=== PATIENT | male | born 1945 | race Caucasian/White ===

== ENCOUNTER 2017-01-06 05:23 | Day surgery (SDC) | payer MEDICARE ==
[2016-12-21 10:40] VITALS: BMI 22.0
--- NOTE | 2016-12-21 11:42 | PAT Medication Instructions ---
Service Date Dec 21, 2016. Current Home Medication List Amiodarone Hcl (Cordarone), 1 TAB PO QAM Bumetanide (Bumex), 1 MG PO QAM Citalopram Hydrobromide (Citalopram Hydrobromide), 1 TAB PO QAM Ergocalciferol (Vitamin D 72643 Unit), 50,000 UNIT PO MONTHLY Famotidine (Pepcid), 20 MG PO Q2D Finasteride (Proscar), 5 MG PO QPM Levetiracetam (Keppra), 250 MG PO BID Multivitamin (Multivitamin), 1 TAB PO QAM Sennosides-Docusate Sodium (Stool Softener), 1 TAB PO DAILY PRN for Constipation Vitamin B Cmplx/Vitc/Folic Ac (Nephrocaps), 1 CAP PO QPM Warfarin Sod (Jantoven), 2 MG PO 4XWK Warfarin Sod (Jantoven), 3 MG PO 3XWK Medication Instructions For Your Scheduled Surgery - Continue per surgeon's instructions: Warfarin Sod (Jantoven), 2 MG PO 4XWK Warfarin Sod (Jantoven), 3 MG PO 3XWK - Hold the following medications the morning of surgery: Bumetanide (Bumex), 1 MG PO QAM Multivitamin (Multivitamin), 1 TAB PO QAM Sennosides-Docusate Sodium (Stool Softener), 1 TAB PO DAILY PRN for Constipation - Take the following medications the morning of surgery with a sip of water OTHERWISE NOTHING TO EAT OR DRINK AFTER MIDNIGHT: Amiodarone Hcl (Cordarone), 1 TAB PO QAM Citalopram Hydrobromide (Citalopram Hydrobromide), 1 TAB PO QAM Famotidine (Pepcid), 20 MG PO Q2D Levetiracetam (Keppra), 250 MG PO BID - Take the following medications as scheduled the night before surgery: Finasteride (Proscar), 5 MG PO QPM Levetiracetam (Keppra), 250 MG PO BID Vitamin B Cmplx/Vitc/Folic Ac (Nephrocaps), 1 CAP PO QPM If you have any questions please call us at [phone] or [phone] or [phone]
--- NOTE | 2016-12-21 12:05 | DIAGNOSTIC IMAGING REPORT ---
CHEST PREADMISSION(PA/LAT) CLINICAL HISTORY: Preoperative chest COMPARISON STUDY: 03/05/2016 FINDINGS: There are postsurgical changes of a midline sternotomy and aortic valve replacement. The heart is normal in size. There is a double-lumen right internal jugular central venous catheter. There is no failure. There is no focal pulmonary consolidation. There are no pleural effusions. Postsurgical changes are present within the lumbar spine.[ IMPRESSION: No active disease in the chest. Electronically signed by: Joshua Wolff M.D. 12/21/2016 12:04 PM Dictated Date/Time: 12/21/2016 12:03 PM
[2016-12-21 12:20] LABS: BASO % 0.5 %; BASO ABS # 0.04 K/uL (0-0.2); COMPLETE YES; EOS % 2.1 %; HEMATOCRIT 33.6 % (42-52); IG% 0.9 %; LYMPH % 17.2 %; LYMPH ABS # 1.48 K/uL (1.2-3.4); MEAN CELL VOLUME 91.3 fL (80-100); MEAN CORPUSCULAR HEMOGLOBIN 29.9 pg (25-34); MEAN CORPUSCULAR HGB CONC 32.7 g/dl (32-36); MEAN PLATELET VOLUME 8.8 fL (7.4-10.4); MONO % 9.7 %; NEUT % 69.6 %; PLATELET COUNT 381 K/uL (130-400); RED BLOOD COUNT 3.68 M/uL (4.7-6.1); WHITE BLOOD COUNT 8.58 K/uL (4.8-10.8)
[2016-12-21 12:30] LABS: INR 1.5 (0.9-1.1); PARTIAL THROMBOPLASTIN RATIO 1.4; PROTHROMBIN TIME (PATIENT) 16.7 SECONDS (9.0-12.0)
[2016-12-21 17:04] LABS: BUN/CREATININE RATIO 6.4 (10-20); CALCIUM 9.1 mg/dl (8.5-10.1); CREATININE 5.4 mg/dl (0.60-1.40); POTASSIUM 4.4 mmol/L (3.5-5.1)
[~2017-01-06] VITALS: Ht 180.3 cm; Wt 71.9 kg
[~2017-01-06 05:23] MED LIST: AMIO200T4 PO; B-CO1CAP17 PO; BUME1TAB PO; CITA20TA4 PO; ERGO500037 PO; FAMO20TA11 PO; FINA5TAB PO; LEVE250T PO; MULT-506 PO; SENNTAB23 PO; WARF2TAB8 PO; WARF3TAB6 PO
[2017-01-06 05:49] VITALS: BP 125/65; PULSE 78; TEMP 36.7; O2SAT 100; Ht 180.3 cm; Wt 71.9 kg
[2017-01-06] MEDS ORDERED: SODIUM CHLORIDE 0.9% 1000ML 1,000 ML IV SCH (06:00)
[2017-01-06] MEDS ORDERED: CLINDAMYCIN 600 MG/54 ML D5W IV SCH (06:00)
[2017-01-06] MEDS ORDERED: NSS 1000ML IV SCH (06:00)
[2017-01-06 06:33] LABS: INR 1.8 (0.9-1.1); PARTIAL THROMBOPLASTIN RATIO 1.6; PROTHROMBIN TIME (PATIENT) 20.2 SECONDS (9.0-12.0)
[2017-01-06 06:42] LABS: BUN/CREATININE RATIO 7.6 (10-20); CREATININE 3.4 mg/dl (0.60-1.40); POTASSIUM 4.5 mmol/L (3.5-5.1)
[2017-01-06] MEDS ORDERED: MIDAZOLAM HCL 1 MG/ML 2ML VIAL ONE (07:00)
[2017-01-06] MEDS ORDERED: FENTANYL CITRATE INJ 50 MCG/1 ML 2 ML VIAL ONE (07:02)
[2017-01-06] MEDS ORDERED: GELATIN SPONGE 12-7MM ONE (07:09)
[2017-01-06] MEDS ORDERED: THROMBIN FOR SOLN 20000 UNIT KIT ONE (07:09)
[2017-01-06] MEDS ORDERED: BUPIVACAINE/EPINEPHRINE 0.5% MPF 1:200,000 10 ML VIAL ONE (07:09)
[2017-01-06] MEDS ORDERED: LIDOCAINE HCL 1% 20 ML VIAL ONE (07:10)
[2017-01-06] MEDS ORDERED: HEPARIN SOD (PORCINE) 1000 UNIT/ML 10 ML VIAL ONE (07:10)
--- NOTE | 2017-01-06 07:14 | History and Physical ---
History & Physical Date of Service Jan 06, 2017. History & Physical CC: End stage renal disease HPI: Mr. Hendrix is a 71-year-old gentleman who underwent an aortic root replacement. He developed acute renal failure postoperatively, requiring dialysis, and now has a PermCath in place. He is here for evaluation for a permanent fistula. HIS ALLERGIES ARE PENICILLIN. Medications include amiodarone, Bumex, citalopram, Keppra, MiraLAX, Pepcid, Procrit, Renal Caps, and Coumadin. Past medical history is positive for coronary artery occlusive disease, aortic dissection, and renal failure. He also has a history of high blood pressure. Family history is positive for heart disease, hypertension, diabetes, cancer, circulation problems, carotid artery disease. SOCIAL HISTORY: He does not smoke. He does not drink. REVIEW OF SYSTEMS: Ten systems were reviewed. The only positive findings were irregular heartbeat, loss of appetite, and prostate problems. PHYSICAL EXAM: The patient is awake, alert, oriented x3. He is right handed. Blood pressure is 150/76 in the right, 154/70 in the left. Head and Neck: Within normal limits. No carotid bruits. Lungs are clear. Cardiac exam shows a regular heartbeat. Abdomen was soft. Vascular exam had carotids, superficial temporal and radials +2 bilaterally. Femorals are +2 bilaterally. Neurologic exam shows weakness of the right upper extremity and left lower extremity. IMPRESSION: End-stage renal disease. PLAN AND RECOMMENDATIONS: We did do mapping which showed a usable cephalic vein in the left arm. It is only 2.5 cm at the wrist and on exam it appeared to be smaller and not very usable. He does have a good cephalic vein in the antecubital fossa, in the upper arm on the left side. The right arm has no good conduit for fistula of either basilic or cephalic veins. We went over the risks, complications, and benefits of a left antecubital cephalic vein AV fistula. He understood these risks and agreed to go ahead with this procedure.
[2017-01-06] MEDS ORDERED: EpHEDrine SULFATE INJ 50 MG/ML AMP IV PRN (07:30)
[2017-01-06] MEDS ORDERED: ATROPINE SULFATE 0.1 MG/ML 5ML SYR IV PRN (07:30)
[2017-01-06] MEDS ORDERED: FENTANYL CITRATE INJ 50 MCG/1 ML 2 ML VIAL IV PRN (07:30)
[2017-01-06] MEDS ORDERED: ONDANSETRON INJ 2 MG/ML 2 ML VIAL IV PRN (07:30)
[2017-01-06] MEDS ORDERED: OXYC-57 PO (08:25)
--- NOTE | 2017-01-06 08:25 | [facility] Post Operative Brief Note ---
Immediate Operative Summary Operative Date Jan 06, 2017. Pre-Operative Diagnosis End Stage Renal Disease Post-Operative Diagnosis End Stage Renal Disease Procedure(s) Performed Left Antecubital Cephalic Vein Arteriovenous Fistula Surgeon Dr. Melchor Valerio Customer Management Specialist Surgeon(s) Nancy Staley,PAC Estimated Blood Loss 5ml Findings Good thrill Specimens none per surgeon Dr. Melchor Valerio Anesthesia MAC Complication(s) None Disposition Recovery Room / PACU
--- NOTE | 2017-01-06 08:27 | Discharge Instructions ---
Discharge Instructions Date of Service Jan 06, 2017. Visit Reason for Visit: End Stage Renal Disease Discharge Discharge Diagnosis / Problem: End stage renal disease, creation left antecubital fistula Discharge Goals Goal(s): Therapeutic intervention Activity Recommendations Activity Limitations: per Instructions/Follow-up section Lifting Limitations: no more than 25 pounds Exercise/Sports Limitations: none May Resume Sexual Activity: when tolerated Shower/Bathe: tomorrow Driving or Machine Use: resume 1 day after discharge Anesthesia . Post Anesthesia Instructions: If you have had General Anesthesia or IV Sedation: * Do not drive today. * Resume driving when surgeon permits. * Do not make important decisions or sign legal documents today. * Call surgeon for: 1. Temperature elevations greater than 101 degrees F. 2. Uncontrollable pain. 3. Excessive bleeding. 4. Persistent nausea and vomiting. 5. Medication intolerance (nausea, vomiting or rash). * For nausea and vomiting use only clear liquids such as: tea, soda, bouillon until nausea subsides, then gradually increase diet as tolerated. * If you have any concerns or questions, call your surgeon's office. If physician is unavailable and it is an emergency, call 911 or go to the nearest emergency room. . Instructions / Follow-Up Instructions / Follow-Up Call [phone] to schedule a follow up appointment if one not already scheduled. ACTIVITY RECOMMENDATIONS: See Above SPECIAL CARE INSTRUCTIONS: Call your doctor if: * Temperature above 101 degrees * Pain not relieved by pain medicine ordered * There is increased drainage or redness from any incision * You have any unanswered questions or concerns. Diet Recommendations Recommended Home Diet: resume previous diet Procedures Procedures Performed: Left Antecubital Cephalic Vein Arteriovenous Fistula Pending Studies Studies pending at discharge: no Medical Emergencies . Who to Call and When: Medical Emergencies: If at any time you feel your situation is an emergency, please call 911 immediately. . Non-Emergent Contact Non-Emergency issues call your: Surgeon . . "Provider Documentation" section prepared by Melchor Valerio. .
[2017-01-06 08:45] VITALS: BP 102/62; PULSE 69; TEMP 36.4; O2SAT 99
--- NOTE | 2017-01-06 08:47 | [facility] Operative Report ---
Operative Report Operative Date Jan 06, 2017. Pre-Operative Diagnosis End Stage Renal Disease Post-Operative Diagnosis End Stage Renal Disease Procedure(s) Performed Left Antecubital Cephalic Vein Arteriovenous Fistula Surgeon Dr. Melchor Valerio Various Exceptionalities Teacher Surgeon(s) MALORIE Ambrose Estimated Blood Loss 5ml Findings Good thrill Specimens none per surgeon Dr. Melchor Valerio Anesthesia MAC Complication(s) None Disposition Recovery Room / PACU Indications This is a 71-year-old white male with end-stage renal disease. He is now admitted for creation of an AV fistula. He has a good cephalic vein in his left arm and we therefore recommended a left antecubital cephalic vein fistula creation. He understood the risks options and benefits and agreed to go ahead with this procedure. Description of Procedure Patient was taken to the operating and placed in the supine position. The left arm was then prepped and draped in a sterile manner. Local anesthetic was then administered in the usual fashion. A transverse incision was then made below the antecubital crease. Dissection was carried downward and the cephalic vein was identified. It compressed easily. Next the brachial artery is identified at that level. Again this artery was of good caliber and very soft. The cephalic vein was then ligated distally and divided. At that point the brachial artery was clamped proximally and distally. A longitudinal arteriotomy was then made. The cephalic vein was then beveled. The vein was approximately 4 mm in size. An end-to-side anastomosis was then accomplished between the cephalic vein and the brachial artery using a 7-0 Prolene suture in the usual vascular fashion. Prior to completing the closure back bleeding and fore bleeding was allowed to occur. The final few sutures were then placed and securely tied. Clamps were then removed. A good thrill was felt in the fistula. Adequate hemostasis was seen. The wound was inspected. Again adequate hemostasis was noted of the wound. The wound was then closed in the usual fashion using a running 3-0 Vicryl suture for the subcutaneous layer. A running 4-0 subcuticular suture of 4-0 Vicryl was used for the skin edges. Dermabond was used for a dressing. Patient had good flow to the hand at the end of the procedure and a good thrill in the fistula. Patient left the operating room in satisfactory condition tolerated procedure well. Nancy Oglesby assisted due to lack of resident availability and was necessary for prepping, draping, retraction, wound closure defects, subQ and skin closure and was necessary for the case. I attest to the content of the Intraoperative Record and any orders documented therein. Any exceptions are noted below.
--- NOTE | 2017-01-06 09:04 | Anesthesiology Progress Note ---
Anesthesia Post Op Note Date & Time Jan 06, 2017 at 09:04 Vital Signs Pain Intensity: 0 Vital Signs Past 12 Hours Date Time Temp Pulse Resp B/P (MAP) Pulse Ox O2 Delivery O2 Flow Rate FiO2 01/06/17 08:45 36.4 69 18 102/62 99 Room Air 01/06/17 05:49 36.7 78 18 125/65 (85) 100 Room Air Notes Mental Status: alert / awake / arousable, participated in evaluation Pt Amnestic to Procedure: Yes Nausea / Vomiting: adequately controlled Pain: adequately controlled Airway Patency, RR, SpO2: stable & adequate BP & HR: stable & adequate Hydration State: stable & adequate Anesthetic Complications: no major complications apparent
[2017-01-06] MEDS ORDERED: PROPOFOL IV EMULSION 10 MG/ML 20 ML VIAL IV ONE (09:07)
[2017-01-06 09:15] VITALS: BP 111/57; PULSE 72; O2SAT 98
--- NOTE | 2017-01-06 13:32 | Progress Note ---
Progress Note Date of Service Jan 06, 2017. Progress Note I assisted Dr Valerio with Charlie Hendrix's Left Antecubital Cephalic Vein Arteriovenous Fistula on 01/06/17, d/t lack of resident availability.
== END 2017-01-06 09:53 | disposition home or self-care (01) ==
LOC: C.ACU 05:23
PROVIDERS: ATTEND Surgery Vascular Surgery
DX: N18.6 End stage renal disease (principal); Z95.2 Presence of prosthetic heart valve; I25.10 Atherosclerotic heart disease of native coronary artery without angina pectoris; Z82.49 Family history of ischemic heart disease and other diseases of the circulatory system; Z83.3 Family history of diabetes mellitus

== ENCOUNTER 2017-04-23 10:27 | Day surgery (SDC) | payer MEDICARE ==
[2017-04-09 13:01] VITALS: BMI 22.0
[~2017-04-23] VITALS: Ht 180.3 cm; Wt 72.6 kg
--- NOTE | 2017-04-23 07:12 | History and Physical ---
History & Physical Date of Service Apr 23, 2017. History & Physical CC: End stage renal disease, malfunctioning left arm fistula HPI: Mr. Hendrix is a 71-year-old gentleman who underwent an aortic root replacement. He developed acute renal failure postoperatively, requiring dialysis, and now has left arm fistula in place. There are problems with running the fistula. Fistulogram showed an occluded cephalic vein in the mid upper arm. HIS ALLERGIES ARE PENICILLIN. Medications include amiodarone, Bumex, citalopram, Keppra, MiraLAX, Pepcid, Procrit, Renal Caps, and Coumadin. Past medical history is positive for coronary artery occlusive disease, aortic dissection, and renal failure. He also has a history of high blood pressure. Family history is positive for heart disease, hypertension, diabetes, cancer, circulation problems, carotid artery disease. SOCIAL HISTORY: He does not smoke. He does not drink. REVIEW OF SYSTEMS: Ten systems were reviewed. The only positive findings were irregular heartbeat, loss of appetite, and prostate problems. PHYSICAL EXAM: The patient is awake, alert, oriented x3. He is right handed. Blood pressure is 150/76 in the right, 154/70 in the left. Head and Neck: Within normal limits. No carotid bruits. Lungs are clear. Cardiac exam shows a regular heartbeat. Abdomen was soft. Vascular exam had carotids, superficial temporal and radials +2 bilaterally. Femorals are +2 bilaterally. Neurologic exam shows weakness of the right upper extremity and left lower extremity. IMPRESSION: End-stage renal disease. Malfunctioning av fistula PLAN AND RECOMMENDATIONS: Patient is admitted for a revision of his fistula. I have discussed the risks options and benefits of the procedure with the patient. The patient understands the risks options and benefits and agrees to the procedure.
[~2017-04-23 10:27] MED LIST changes: -AMIO200T4 PO; -CITA20TA4 PO; +CLINDAMYCIN 600 MG/54 ML D5W IV SCH; +CMD3 PO; +NIFE60TA57 PO; +PARO1TAB27 PO; +SODIUM CHLORIDE 0.9% 1000ML 1,000 ML IV SCH; -WARF2TAB8 PO; -WARF3TAB6 PO; +WARF4TAB8 PO
[2017-04-23 11:15] VITALS: BP 132/72; PULSE 75; TEMP 36.9; O2SAT 93; Ht 180.3 cm; Wt 72.6 kg
--- NOTE | 2017-04-23 11:33 | History & Physical Bridge Note ---
H&P Re-Evaluation Bridge Note: I have examined the patient, reviewed the History & Physical and in the interval since the performance of the History & Physical I have noted the following changes of clinical significance: No changes noted
[2017-04-23 12:31] LABS: PARTIAL THROMBOPLASTIN RATIO 1.1; PROTHROMBIN TIME (PATIENT) 11.1 SECONDS (9.0-12.0)
[2017-04-23 12:48] LABS: BUN/CREATININE RATIO 5.9 (10-20); CALCIUM 9.3 mg/dl (8.5-10.1); CREATININE 4.89 mg/dl (0.60-1.40)
[2017-04-23] MEDS ORDERED: ONDANSETRON INJ 2 MG/ML 2 ML VIAL IV PRN (13:15)
[2017-04-23] MEDS ORDERED: LABETALOL HCL IV 5 MG/ML 20ML IV PRN (13:15)
[2017-04-23] MEDS ORDERED: EpHEDrine SULFATE INJ 50 MG/ML AMP IV PRN (13:15)
[2017-04-23] MEDS ORDERED: HYDROmorphone INJ 1 MG/ML SYR IV PRN (13:15)
[2017-04-23] MEDS ORDERED: FENTANYL CITRATE INJ 50 MCG/1 ML 2 ML VIAL IV PRN (13:15)
[2017-04-23] MEDS ORDERED: ATROPINE SULFATE 0.1 MG/ML 5ML SYR IV PRN (13:15)
[2017-04-23] MEDS ORDERED: MEPERIDINE HCL 25 MG/ML CARP IV PRN (13:15)
[2017-04-23] MEDS ORDERED: LIDOCAINE HCL 2% 2 ML VIAL (20MG/ML) ONE (14:07)
[2017-04-23] MEDS ORDERED: PROPOFOL IV EMULSION 10 MG/ML 20 ML VIAL IV ONE ×2 (14:07→16:12)
[2017-04-23] MEDS ORDERED: MIDAZOLAM HCL 1 MG/ML 2ML VIAL ONE (14:07)
[2017-04-23] MEDS ORDERED: FENTANYL CITRATE INJ 50 MCG/1 ML 2 ML VIAL ONE (14:08)
[2017-04-23] MEDS ORDERED: BUPIVACAINE/EPINEPHRINE 0.5% MPF 1:200,000 30 ML VIAL ONE (14:09)
[2017-04-23] MEDS ORDERED: GELATIN SPONGE 12-7MM ONE (14:09)
[2017-04-23] MEDS ORDERED: THROMBIN FOR SOLN 20000 UNIT KIT ONE (14:09)
[2017-04-23] MEDS ORDERED: LIDOCAINE HCL 1% 20 ML VIAL ONE (14:09)
[2017-04-23] MEDS ORDERED: HEPARIN SOD (PORCINE) 1000 UNIT/ML 10 ML VIAL ONE ×2 (14:10→15:02)
--- NOTE | 2017-04-23 16:21 | [facility] Post Operative Brief Note ---
Immediate Operative Summary Operative Date Apr 23, 2017. Pre-Operative Diagnosis End stage renal disease, malfunctioning left arm fistula Post-Operative Diagnosis End stage renal disease, malfunctioning left arm fistula Procedure(s) Performed Revision Left Upper Arm Arteriovenous Fistula Surgeon Dr. Valerio Yard Coupler Surgeon(s) Nancy Sellers PA-C Estimated Blood Loss 75ml Findings good thrill Specimens NONE per surgeon Anesthesia MAC Complication(s) None Disposition Recovery Room / PACU
--- NOTE | 2017-04-23 16:24 | Discharge Instructions ---
Discharge Instructions Date of Service Apr 23, 2017. Visit Reason for Visit: End Stage Renal Disease Discharge Discharge Diagnosis / Problem: Malfunctioning left arm fistula Discharge Goals Goal(s): Therapeutic intervention Activity Recommendations Activity Limitations: per Instructions/Follow-up section Anesthesia . Post Anesthesia Instructions: If you have had General Anesthesia or IV Sedation: * Do not drive today. * Resume driving when surgeon permits. * Do not make important decisions or sign legal documents today. * Call surgeon for: 1. Temperature elevations greater than 101 degrees F. 2. Uncontrollable pain. 3. Excessive bleeding. 4. Persistent nausea and vomiting. 5. Medication intolerance (nausea, vomiting or rash). * For nausea and vomiting use only clear liquids such as: tea, soda, bouillon until nausea subsides, then gradually increase diet as tolerated. * If you have any concerns or questions, call your surgeon's office. If physician is unavailable and it is an emergency, call 911 or go to the nearest emergency room. . Instructions / Follow-Up Instructions / Follow-Up Call [phone] to schedule a follow up appointment if one not already scheduled. ACTIVITY RECOMMENDATIONS: See Above SPECIAL CARE INSTRUCTIONS: Call your doctor if: * Temperature above 101 degrees * Pain not relieved by pain medicine ordered * There is increased drainage or redness from any incision * You have any unanswered questions or concerns. Diet Recommendations Recommended Home Diet: resume previous diet Procedures Procedures Performed: Revision Left Upper Arm Arteriovenous Fistula Pending Studies Studies pending at discharge: no Medical Emergencies . Who to Call and When: Medical Emergencies: If at any time you feel your situation is an emergency, please call 911 immediately. . Non-Emergent Contact Non-Emergency issues call your: Surgeon . . "Provider Documentation" section prepared by Melchor Valerio. .
[2017-04-23] MEDS ORDERED: OXYCODONE/ACETAMINOPHEN 5-325 TAB PO PRN (16:30)
--- NOTE | 2017-04-23 16:54 | Anesthesiology Progress Note ---
Anesthesia Post Op Note Date & Time Apr 23, 2017 at 16:54 Vital Signs Pain Intensity: 0 Vital Signs Past 12 Hours Date Time Temp Pulse Resp B/P (MAP) Pulse Ox O2 Delivery O2 Flow Rate FiO2 04/23/17 16:50 36.4 67 16 133/73 98 Room Air 04/23/17 16:40 36.4 68 16 127/69 100 Oxymask 5 04/23/17 16:30 36.4 70 16 132/69 100 Oxymask 5 04/23/17 11:15 36.9 75 18 132/72 (92) 93 Room Air Notes Mental Status: alert / awake / arousable, participated in evaluation Pt Amnestic to Procedure: Yes Nausea / Vomiting: adequately controlled Pain: adequately controlled Airway Patency, RR, SpO2: stable & adequate BP & HR: stable & adequate Hydration State: stable & adequate Anesthetic Complications: no major complications apparent
[2017-04-23 17:00] VITALS: BP 126/70; PULSE 80; TEMP 36.4; O2SAT 98
[2017-04-23 17:30] VITALS: BP 125/67; PULSE 70; TEMP 36.4; O2SAT 99
--- NOTE | 2017-04-27 11:27 | Progress Note ---
Progress Note Date of Service Apr 27, 2017. Progress Note I assisted Dr Valerio with Charlie Hendrix's Revision Left Upper Arm Arteriovenous Fistula on 04/23/17, d/t lack of resident availability.
--- NOTE | 2017-05-20 10:19 | OPERATIVE REPORT ---
DATE OF OPERATION: 04/23/2017 PREOPERATIVE DIAGNOSIS: Malfunctioning arteriovenous fistula, left arm. POSTOPERATIVE DIAGNOSIS: Same. PROCEDURE: Revision of left upper arm AV fistula. SURGEON: Melchor Valerio MD. INFORMATION SYSTEMS AUDITOR: Nancy Sellers PA-C. ANESTHETIC: MAC. PROCEDURE INDICATIONS: The patient is a 71-year-old gentleman with a left upper arm fistula. The cephalic vein is occluded in the upper arm. He does have a good cephalic vein in the forearm. We decided to harvest the cephalic vein and do a jump graft from the patent cephalic vein down to the basilic vein in the upper arm. He understood the risks, options and benefits and agreed to have this procedure. DESCRIPTION OF PROCEDURE: The patient was taken to the operating room and placed in supine position. After the left arm was prepped and draped in a sterile manner, local anesthetic was administered. A transverse incision was made over the distal end of the cephalic vein where it was of good caliber and patent. We then made another incision over the basilic vein in the medial aspect of the arm and just distal to the anterior axillary line. The basilic vein at that level was of good caliber and compressed easily. We then made an incision over the cephalic vein from the antecubital crease down to the distal third of the forearm. The cephalic vein was large and widely patent. We ligated all the side branches. We then ligated the cephalic vein proximally and distally and harvested the vein. It was reversed. The cephalic vein was then clamped proximally. It was then divided. The basilic vein was then anastomosed in an end-to-end fashion to the cephalic vein using a 6-0 Prolene suture in the usual vascular fashion. Once this was completed, the cephalic interposition graft was then passed through the tunnel. The basilic artery was then clamped proximally and distally. Longitudinal arteriotomy was then performed. An end-to-side anastomosis was then accomplished using a 6-0 Prolene suture in the usual vascular fashion. Prior to completing the closure, backbleeding and forward bleeding was allowed to occur and final few sutures were then placed and securely tied. Clamps were removed. Excellent flow was seen through the fistula. There was a good palpable thrill. The distal veins dilated up nicely. The wounds were then closed in the usual fashion using running 3-0 Vicryl suture for subcutaneous layer and yoandy for the skin. Sterile dressings were applied to the wound. The patient left the operating room in satisfactory condition and tolerated the procedure well. Nancy Sellers PA-C assisted due to lack of resident availability and was necessary for prepping, draping, retraction and wound closure, defects of subcutaneous tissue and skin closure. I attest to the content of the Intraoperative Record and any orders documented therein. Any exception s are noted below.
== END 2017-04-23 15:48 | disposition home or self-care (01) ==
LOC: C.ACU 10:27
PROVIDERS: ATTEND Surgery Vascular Surgery
DX: T82.868A Thrombosis due to vascular prosthetic devices, implants and grafts, initial encounter (principal); N18.6 End stage renal disease; I12.0 Hypertensive chronic kidney disease with stage 5 chronic kidney disease or end stage renal disease; I48.0 Paroxysmal atrial fibrillation; Y84.8 Other medical procedures as the cause of abnormal reaction of the patient, or of later complication, without mention of misadventure at the time of the procedure; Z88.0 Allergy status to penicillin; Z95.2 Presence of prosthetic heart valve; Z79.899 Other long term (current) drug therapy; Z79.01 Long term (current) use of anticoagulants; Z82.49 Family history of ischemic heart disease and other diseases of the circulatory system; Z83.3 Family history of diabetes mellitus; Z80.9 Family history of malignant neoplasm, unspecified; F41.9 Anxiety disorder, unspecified

== ENCOUNTER → 2017-06-25 | Day surgery (SDC) | payer MEDICARE ==
[2017-06-18 12:48] VITALS: BMI 23.0
[~2017-06-25] VITALS: Ht 180.3 cm; Wt 75.0 kg
[~2017-06-25] MED LIST changes: +ATROPINE SULFATE 0.1 MG/ML 5ML SYR IV PRN; +D5W AND 1/4NSS 1000 ML IV SCH; +EpHEDrine SULFATE INJ 50 MG/ML AMP IV PRN; +FENTANYL CITRATE INJ 50 MCG/1 ML 2 ML VIAL IV PRN; +FENTANYL CITRATE INJ 50 MCG/1 ML 2 ML VIAL ONE; +LACTATED RINGER'S 1000ML 500 ML IV SCH; +LIDOCAINE HCL 1% 20 ML VIAL INJ ONE; +LOVENOX INJ; +LPT40 PO; +MIDAZOLAM HCL 1 MG/ML 2ML VIAL ONE; +ONDANSETRON INJ 2 MG/ML 2 ML VIAL IV PRN; +PHENYLEPHRINE 100MCG/ML 5ML SYR IV PRN; +SEVE800T7 PO
--- NOTE | 2017-06-25 06:05 | History and Physical ---
History & Physical Date of Service Jun 25, 2017. History & Physical CC: End stage renal disease,functioning left arm fistula HPI: Mr. Hendrix is a 71-year-old gentleman who underwent an aortic root replacement. He developed acute renal failure postoperatively, requiring dialysis, and now has left arm fistula in place. There are problems with running the fistula. He had a revision of his fistula and it is now running normally. HIS ALLERGIES ARE PENICILLIN. Medications include amiodarone, Bumex, citalopram, Keppra, MiraLAX, Pepcid, Procrit, Renal Caps, and Coumadin. Past medical history is positive for coronary artery occlusive disease, aortic dissection, and renal failure. He also has a history of high blood pressure. Family history is positive for heart disease, hypertension, diabetes, cancer, circulation problems, carotid artery disease. SOCIAL HISTORY: He does not smoke. He does not drink. REVIEW OF SYSTEMS: Ten systems were reviewed. The only positive findings were irregular heartbeat, loss of appetite, and prostate problems. PHYSICAL EXAM: The patient is awake, alert, oriented x3. He is right handed. Blood pressure is 150/76 in the right, 154/70 in the left. Head and Neck: Within normal limits. No carotid bruits. Lungs are clear. Cardiac exam shows a regular heartbeat. Abdomen was soft. Vascular exam had carotids, superficial temporal and radials +2 bilaterally. Femorals are +2 bilaterally. Neurologic exam shows weakness of the right upper extremity and left lower extremity. Good thrill in left arm fistula IMPRESSION: End-stage renal disease. Functioning av fistula PLAN AND RECOMMENDATIONS: Patient is admitted for removal of his permcath. I have discussed the risks options and benefits of the procedure with the patient. The patient understands the risks options and benefits and agrees to the procedure.
[2017-06-25 08:53] VITALS: BP 121/69; PULSE 84; TEMP 36.9; O2SAT 84; Ht 180.3 cm; Wt 75.0 kg
[2017-06-25 10:41] LABS: PTT PATIENT 26.8 SECONDS (21.0-31.0)
--- NOTE | 2017-06-25 11:06 | [facility] Operative Report ---
Operative Report Operative Date Jun 25, 2017. Pre-Operative Diagnosis functioning fistula Post-Operative Diagnosis same Procedure(s) Performed Removal Of Perm Catheter Surgeon Dr. Valerio General Manager Food Surgeon(s) none Estimated Blood Loss 0 Findings catheter and cuff removed Specimens A. explanted perm catheter Anesthesia MAC Complication(s) None Disposition Indications This is a 71-year-old male who has a functioning fistula. He is here for removal of his PermCath. I have discussed the risks options and benefits of the procedure with the patient. The patient understands the risks options and benefits and agrees to the procedure. Description of Procedure The patient was taken to the angio suite and placed in the supine position. The right side of the neck, chest wall and catheter were prepped and draped in a sterile manner. Local anesthesia was then accomplished. Using sharp and blunt dissection, the cuff of the permcath was freed up from the surrounding fibrous tissue. The permcath and cuff were completely removed. Pressure was then applied and adequate hemostasis was obtained. A sterile dressing was then applied. The patient left the angio suite in good condition and tolerated the procedure well. I attest to the content of the Intraoperative Record and any orders documented therein. Any exceptions are noted below.
--- NOTE | 2017-06-25 11:07 | Discharge Instructions ---
Discharge Instructions Date of Service Jun 25, 2017. Visit Reason for Visit: End Stage Renal Disease Discharge Discharge Diagnosis / Problem: Functioning fistula Discharge Goals Goal(s): Therapeutic intervention Activity Recommendations Activity Limitations: per Instructions/Follow-up section Anesthesia . Post Anesthesia Instructions: If you have had General Anesthesia or IV Sedation: * Do not drive today. * Resume driving when surgeon permits. * Do not make important decisions or sign legal documents today. * Call surgeon for: 1. Temperature elevations greater than 101 degrees F. 2. Uncontrollable pain. 3. Excessive bleeding. 4. Persistent nausea and vomiting. 5. Medication intolerance (nausea, vomiting or rash). * For nausea and vomiting use only clear liquids such as: tea, soda, bouillon until nausea subsides, then gradually increase diet as tolerated. * If you have any concerns or questions, call your surgeon's office. If physician is unavailable and it is an emergency, call 911 or go to the nearest emergency room. . Instructions / Follow-Up Instructions / Follow-Up Call [phone] with any questions or concerns. May shower tonight if dressing dry. Remove prior and replace if needed. SPECIAL CARE INSTRUCTIONS: Medications: * Continue to take your medications as directed. If you have been given a prescription for Plavix, please fill it immediately and take as directed. Incision Care: * Your puncture site may have some bruising and minor swelling for about one week. * You will have a small dressing covering your puncture site. You may remove the dressing after 24 hours and shower. You may let the warm soapy water run over it, but be sure to dry the puncture site well and keep it dry. * DO NOT IMMERSE THE INCISION IN A TUB/POOL/etc. UNTIL HEALED. * Puncture sites should be kept covered with a band-aid until it begins to heal. Restrictions: * Depending on whether you leg or arm was punctured to access the arteries, you will be required to lay flat, hold your arm still, or both, for about 4 hours after the procedure to prevent bleeding. * Limit your activity for the first 48 hours. You may walk and go up and down steps. Avoid excessive bending or movement at the puncture site. Possible Complications: * Excessive Swelling - after blood flow is improved you may notice increased swelling in the lower legs. This is a normal response. This usually depends on the amount of blockages in the leg, how long they have been there prior to your procedure and how much blood flow was restored. Elevating your legs will help to improve this. Please notify our office ([phone] ) if the swelling does not go away after lying in bed overnight. * Infection/Drainage/Bleeding - Drainage or bleeding from the puncture site should be minimal. If you have excessive bleeding or drainage, call our office ([phone]) right away. * Pain - You may experience some mild pain or soreness at your puncture site. If your pain does not improve, please contact our office ([phone]). Call your doctor and seek emergent treatment if you develop: * Temperature above 101 degrees * Any fever or chills * Any redness or purulent drainage from the puncture site * Any new dusky/blue colored toes or feet with coolness or sharp or aching pain. SKIN IRRITATION: * You may experience some redness and/or swelling in the area where radiation was administered. If any skin irritation occurs, please contact your family physician. FOLLOW UP VISIT: Keep any scheduled doctor appointments. Diet Recommendations Recommended Home Diet: resume previous diet Procedures Procedures Performed: Removal Of Perm Catheter Pending Studies Studies pending at discharge: no Medical Emergencies . Who to Call and When: Medical Emergencies: If at any time you feel your situation is an emergency, please call 911 immediately. . Non-Emergent Contact Non-Emergency issues call your: Surgeon . . "Provider Documentation" section prepared by Melchor Valerio. .
[2017-06-25 11:10] VITALS: BP 103/70; PULSE 78; TEMP 36.7; O2SAT 100
[2017-06-25 11:45] VITALS: BP 134/68; PULSE 80; TEMP 36.6; O2SAT 97
--- NOTE | 2017-06-25 11:45 | Anesthesiology Progress Note ---
Anesthesia Post Op Note Date & Time Jun 25, 2017 at 11:45 Vital Signs Pain Intensity: 0 Vital Signs Past 12 Hours Date Time Temp Pulse Resp B/P (MAP) Pulse Ox O2 Delivery O2 Flow Rate FiO2 06/25/17 11:10 36.7 78 16 103/70 100 Room Air 06/25/17 08:53 36.9 84 16 121/69 (86) 84 Room Air Notes Mental Status: alert / awake / arousable, participated in evaluation Pt Amnestic to Procedure: Yes Nausea / Vomiting: adequately controlled Pain: adequately controlled Airway Patency, RR, SpO2: stable & adequate BP & HR: stable & adequate Hydration State: stable & adequate Anesthetic Complications: no major complications apparent
== END | disposition home or self-care (01) ==
LOC: C.ACU 08:01
PROVIDERS: ATTEND Surgery Vascular Surgery
DX: Z45.2 Encounter for adjustment and management of vascular access device (principal); N18.6 End stage renal disease; Z79.01 Long term (current) use of anticoagulants; Z82.49 Family history of ischemic heart disease and other diseases of the circulatory system; Z83.3 Family history of diabetes mellitus

== ENCOUNTER 2017-08-30 07:26 | Day surgery (SDC) | payer MEDICARE ==
[~2017-08-30] VITALS: Ht 180.3 cm; Wt 75.4 kg
--- NOTE | 2017-08-30 05:52 | History and Physical ---
History & Physical Date of Service Aug 30, 2017. History & Physical CC: End stage renal disease, malfunctioning left arm fistula HPI: Mr. Hendrix is a 71-year-old gentleman who underwent an aortic root replacement. He developed acute renal failure postoperatively, requiring dialysis, and now has left arm fistula in place. There are problems with running the fistula. He had a revision of his fistula and it was then running normally. It now has poor flows at dialysis. HIS ALLERGIES ARE PENICILLIN. Medications include amiodarone, Bumex, citalopram, Keppra, MiraLAX, Pepcid, Procrit, Renal Caps, and Coumadin. Past medical history is positive for coronary artery occlusive disease, aortic dissection, and renal failure. He also has a history of high blood pressure. Family history is positive for heart disease, hypertension, diabetes, cancer, circulation problems, carotid artery disease. SOCIAL HISTORY: He does not smoke. He does not drink. REVIEW OF SYSTEMS: Ten systems were reviewed. The only positive findings were irregular heartbeat, loss of appetite, and prostate problems. PHYSICAL EXAM: The patient is awake, alert, oriented x3. He is right handed. Blood pressure is 150/76 in the right, 154/70 in the left. Head and Neck: Within normal limits. No carotid bruits. Lungs are clear. Cardiac exam shows a regular heartbeat. Abdomen was soft. Vascular exam had carotids, superficial temporal and radials +2 bilaterally. Femorals are +2 bilaterally. Neurologic exam shows weakness of the right upper extremity and left lower extremity. Good thrill in left arm fistula IMPRESSION: End-stage renal disease. Malfunctioning av fistula PLAN AND RECOMMENDATIONS: Patient is admitted for a fistulogram and possible intervention. I have discussed the risks options and benefits of the procedure with the patient. The patient understands the risks options and benefits and agrees to the procedure.
[~2017-08-30 07:26] MED LIST changes: -ATROPINE SULFATE 0.1 MG/ML 5ML SYR IV PRN; +DEXTROSE 5% IV SCH; -EpHEDrine SULFATE INJ 50 MG/ML AMP IV PRN; -FENTANYL CITRATE INJ 50 MCG/1 ML 2 ML VIAL IV PRN; -FENTANYL CITRATE INJ 50 MCG/1 ML 2 ML VIAL ONE; -LACTATED RINGER'S 1000ML 500 ML IV SCH; -LIDOCAINE HCL 1% 20 ML VIAL INJ ONE; -MIDAZOLAM HCL 1 MG/ML 2ML VIAL ONE; -ONDANSETRON INJ 2 MG/ML 2 ML VIAL IV PRN; -PHENYLEPHRINE 100MCG/ML 5ML SYR IV PRN; +RANITIDINE IV SCH; -SODIUM CHLORIDE 0.9% 1000ML 1,000 ML IV SCH; -WARF4TAB8 PO
[2017-08-30 07:57] VITALS: BP 114/58; PULSE 55; TEMP 36.6; O2SAT 100; Ht 180.3 cm; Wt 75.4 kg
[2017-08-30 08:20] LABS: PTT PATIENT 26.5 SECONDS (21.0-31.0)
[2017-08-30] MEDS ORDERED: METO25TA56 PO (08:30)
[2017-08-30] MEDS ORDERED: B-CO1CAP17 PO (08:31)
[2017-08-30] MEDS ORDERED: [UNRECOGNIZED DRUG - OTHER] PO (08:31)
[2017-08-30] MEDS ORDERED: SENNTAB23 (08:32)
[2017-08-30] MEDS ORDERED: LEVE250T PO (08:34)
[2017-08-30] MEDS ORDERED: ERGO500037 PO (08:35)
[2017-08-30] MEDS ORDERED: FINA5TAB PO (08:36)
[2017-08-30] MEDS ORDERED: FAMO20TA11 PO (08:36)
[2017-08-30] MEDS ORDERED: BUME1TAB PO (08:37)
[2017-08-30] MEDS ORDERED: prednisone (08:40)
[2017-08-30] MEDS ORDERED: FENTANYL CITRATE INJ 50 MCG/1 ML 2 ML VIAL ONE (09:26)
[2017-08-30] MEDS ORDERED: MIDAZOLAM HCL 1 MG/ML 2ML VIAL ONE (09:27)
--- NOTE | 2017-08-30 09:32 | Pre Sedation Assessment ---
Pre Sedation Assessment General Date of Sedation: Aug 30, 2017. Vital Signs Past 12 Hours Date Time Temp Pulse Resp B/P (MAP) Pulse Ox O2 Delivery O2 Flow Rate FiO2 08/30/17 07:57 36.6 55 18 114/58 (76) 100 Room Air Review Cardiovascular: regular rate, rhythm Lungs: chest non-tender Pre-Sedation Airway Assessment Smoking Status: Never Smoker Hx of Sleep Apnea: No Short Thick Neck: No Oral Cavity: Capped Teeth Mallampati Classification: Class II ASA Classification: Class III NPO Status Date of Last Intake of Fluids: Aug 30, 2017 Time of Last Intake of Fluids: 0600 Date of Last Intake of Solids: Aug 29, 2017 Time of Last Intake of Solids: 1999 Procedure Planning Contraindications for Sedation: None Current Medications Reviewed: Yes Notes The planned sedation has been discussed with the patient. Informed Consent was obtained. I have identified the patient, determined the appropriateness of sedation and have assessed the patient immediately prior to the procedure. All medicine(s) and interventions are by my order.
[2017-08-30] MEDS ORDERED: HYDROCORTISONE SOD SUCCINATE 100 MG/2 ML VIAL IV STA (09:37)
[2017-08-30] MEDS ORDERED: FENTANYL CITRATE INJ 50 MCG/1 ML 2 ML VIAL IV ONE (10:56)
[2017-08-30] MEDS ORDERED: OPTIRAY 300 IV ONE (10:56)
[2017-08-30] MEDS ORDERED: LIDOCAINE HCL 1% 20 ML VIAL INJ ONE (10:56)
[2017-08-30] MEDS ORDERED: MIDAZOLAM HCL 1 MG/ML 2ML VIAL IV ONE (10:56)
--- NOTE | 2017-08-30 11:00 | [facility] Post Operative Brief Note ---
Immediate Operative Summary Operative Date Aug 30, 2017. Pre-Operative Diagnosis Malfunctioning Fistula Post-Operative Diagnosis Malfunctioning Fistula, stenosis peripheral vein and innominate vein Procedure(s) Performed Fistulogram, Percutaneous Transluminal Angioplasty and Stenting Peripheral, Percutaneous Transluminal Angioplasty Centeral. Moderate Sedation from 1019 - [address] Valerio Solution Designer Surgeon(s) None Estimated Blood Loss 15 Findings Consistent with Post-Op Diagnosis Specimens None Drains None Anesthesia Type IV Sedat Cons RN Only Complication(s) none Disposition Accompanied Pt To Recover: no Disposition:
--- NOTE | 2017-08-30 11:03 | Discharge Instructions ---
Discharge Instructions Date of Service Aug 30, 2017. 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 Post Anesthesia Instructions: If you have had General Anesthesia or IV Sedation: * Do not drive today. * Resume driving when surgeon permits. * Do not make important decisions or sign legal documents today. * Call surgeon for: 1. Temperature elevations greater than 101 degrees F. 2. Uncontrollable pain. 3. Excessive bleeding. 4. Persistent nausea and vomiting. 5. Medication intolerance (nausea, vomiting or rash). * For nausea and vomiting use only clear liquids such as: tea, soda, bouillon until nausea subsides, then gradually increase diet as tolerated. * If you have any concerns or questions, call your surgeon's office. If physician is unavailable and it is an emergency, call 911 or go to the nearest emergency room. . Instructions / Follow-Up Instructions / Follow-Up Call [phone] to schedule a follow up appointment if one not already scheduled. SPECIAL CARE INSTRUCTIONS: Medications: * Continue to take your medications as directed. If you have been given a prescription for Plavix, please fill it immediately and take as directed. Incision Care: * Your puncture site may have some bruising and minor swelling for about one week. * You will have a small dressing covering your puncture site. You may remove the dressing after 24 hours and shower. You may let the warm soapy water run over it, but be sure to dry the puncture site well and keep it dry. * DO NOT IMMERSE THE INCISION IN A TUB/POOL/etc. UNTIL HEALED. * Puncture sites should be kept covered with a band-aid until it begins to heal. Restrictions: * Depending on whether you leg or arm was punctured to access the arteries, you will be required to lay flat, hold your arm still, or both, for about 4 hours after the procedure to prevent bleeding. * Limit your activity for the first 48 hours. You may walk and go up and down steps. Avoid excessive bending or movement at the puncture site. Possible Complications: * Excessive Swelling - after blood flow is improved you may notice increased swelling in the lower legs. This is a normal response. This usually depends on the amount of blockages in the leg, how long they have been there prior to your procedure and how much blood flow was restored. Elevating your legs will help to improve this. Please notify our office ([phone] ) if the swelling does not go away after lying in bed overnight. * Infection/Drainage/Bleeding - Drainage or bleeding from the puncture site should be minimal. If you have excessive bleeding or drainage, call our office ([phone]) right away. * Pain - You may experience some mild pain or soreness at your puncture site. If your pain does not improve, please contact our office ([phone]). Call your doctor and seek emergent treatment if you develop: * Temperature above 101 degrees * Any fever or chills * Any redness or purulent drainage from the puncture site * Any new dusky/blue colored toes or feet with coolness or sharp or aching pain. SKIN IRRITATION: * You may experience some redness and/or swelling in the area where radiation was administered. If any skin irritation occurs, please contact your family physician. FOLLOW UP VISIT: Keep any scheduled doctor appointments. Diet Recommendations Recommended Home Diet: resume previous diet Procedures Procedures Performed: Fistulogram, Percutaneous Transluminal Angioplasty and Stenting Peripheral, Percutaneous Transluminal Angioplasty Centeral. Moderate Sedation from 1019 - 1051 Pending Studies Studies pending at discharge: no Medical Emergencies . Who to Call and When: Medical Emergencies: If at any time you feel your situation is an emergency, please call 911 immediately. . Non-Emergent Contact Non-Emergency issues call your: Surgeon . . "Provider Documentation" section prepared by Melchor Valerio. .
--- NOTE | 2017-08-30 11:04 | Post Sedation Assessment ---
Post Sedation Assessment General Date of Sedation Aug 30, 2017. Vital Signs: Vital Signs Past 12 Hours Date Time Temp Pulse Resp B/P (MAP) Pulse Ox O2 Delivery O2 Flow Rate FiO2 08/30/17 11:00 59 20 113/59 99 Room Air 08/30/17 10:55 57 20 112/62 99 Room Air 08/30/17 10:50 58 18 118/63 99 Room Air 08/30/17 10:45 Mask 4 08/30/17 10:40 Mask 4 08/30/17 10:35 Mask 4 08/30/17 10:30 Mask 4 08/30/17 10:25 Mask 4 08/30/17 10:20 Mask 4 08/30/17 10:15 Mask 4 08/30/17 10:10 Room Air 08/30/17 10:04 Room Air 08/30/17 07:57 36.6 55 18 114/58 (76) 100 Room Air Post Procedure Recovery Score Activity: (2) Moves 4 extremities * Respiration: (2) Deep breath/cough Circulation: (2) +/-20% PreAnes Value Consciousness: (2) Fully Awake Oxygen Saturation: (2) > 92% On Room Air Post Anesthesia Score: 10 Discharge Sedation Level of Care: Fast Track Phase II Post Sedation Plan On clinical assessment, the patient appears to have tolerated the sedation without complications. Patient is recovering as anticipated. Patient will continue to be monitored by nursing and may be discharged when sedation discharge criteria are met per below protocol. Upon Completions of procedure and additional 15 minutes continue every 5 minute vital signs and the P.A.R. score; then discharge to a Phase I or Fast Track to Phase II per the following guidelines: * Discharge Patient to appropriate Phase II area if PAR is 8 or greater or return to pre- procedure baseline. The post - procedure orders will be as directed. * If PAR score is less than 8 or not return to pre-procedure baseline then patient will follow Phase I monitoring till PAR is reached for Phase II. The Phase I may be done in procedure room or may call to secure a Phase I area. * If naloxone or flumazenil are used for reversal, hold in Phase I for an additional 60 -120 minutes before discharge to Phase II. Please call the Sedation Physician to re-evaluate and complete post-note for discharge to Phase II area. Do NOT discharge from procedure sedation or Phase 1 until post- sedation evaluation note is complete by procedure /sedation MD Sedation Discharge Instructions to be given to the patient at discharge to home.
[2017-08-30 11:10] VITALS: BP 116/60; PULSE 57; TEMP 36.6; O2SAT 100
--- NOTE | 2017-08-30 11:13 | [facility] Operative Report ---
Operative Report Operative Date Aug 30, 2017. Pre-Operative Diagnosis Malfunctioning Fistula Post-Operative Diagnosis Malfunctioning Fistula, stenosis peripheral vein and innominate vein Procedure(s) Performed Fistulogram, Percutaneous Transluminal Angioplasty and Stenting Peripheral, Percutaneous Transluminal Angioplasty Centeral. Moderate Sedation from 1019 - [address] Valerio Hot Bread Baker Surgeon(s) None Estimated Blood Loss 15 Findings peripheral and central stenosis Specimens None Drains None Anesthesia Type IV Sedat Cons RN Only Complication(s) none Disposition no Indications This is a 71-year-old gentleman with a left upper arm fistula. They are having trouble with dialysis with function of the fistula. Fistulogram with possible intervention was recommended.I have discussed the risks options and benefits of the procedure with the patient. The patient understands the risks options and benefits and agrees to the procedure. Description of Procedure The patient was taken to the angiogram suite and placed in the supine position. The left arm was then prepped and draped in a sterile manner. Local anesthetic was administered and a percutaneous puncture was then made of the proximal portion of the left arm AV fistula using micropuncture technique. Micropuncture wire and sheath were then inserted. A fistulogram was then performed. The fistulogram showed a stenosis of the basilic vein just beyond the anastomosis. It was approximately 4 cm in length. The fistula itself had two aneurysms one proximal at the proximal needle entrance site the other was at the distal site more of a saccular pseudoaneurysm. The central veins showed a short occlusion of the left innominate vein. Large amount of collaterals were seen proximal to this. We then exchanged the micropuncture sheath to a 6 Tajik sheath. An 035 guidewire was used to pass through the first lesion. We used a 6 x 8 balloon to balloon the proximal venous lesion in the arm. Good results were noted. There was some extravasation just beyond the anastomosis on the vein. Therefore we decided to place a Viabahn across this lesion. An 035 glide catheter was inserted. This was passed through the lesion. The wire was exchanged in 018 wire. A 6 x 5 Viabahn was then inserted and deployed over the area where the leak was seen. This was then ballooned with a 6 x 8 balloon again. Excellent flow was seen and no residual stenosis or extravasation was noted. We then exchanged the 018 wire to an 035 glidwire using the glide catheter. The 035 wire was then passed through the innomiate vein. There appeared to be a short occlusion at that level. The innominate vein was then ballooned with a 6 x 6 Childwold balloon. Fairly good results were noted. We then exchanged the sheath to a 7 Tajik sheath and inserted a 10 x 2 lutonix balloon. This was placed across the lesion and ballooned to 11 rafy for 2 minutes. The balloon was then removed. Excellent flow was seen through this area. A good thrill was felt in the fistula. The sheath was then pulled and pressure was applied. Adequate hemostasis was obtained. The patient left the angiogram suite in good condition and tolerated the procedure well. I attest to the content of the Intraoperative Record and any orders documented therein. Any exceptions are noted below.
[2017-08-30 11:40] VITALS: BP 121/64; PULSE 58; TEMP 36.6; O2SAT 98
== END 2017-08-30 11:49 | disposition home health service (06) ==
LOC: C.ACU 07:26
PROVIDERS: ATTEND Surgery Vascular Surgery
DX: T82.858A Stenosis of other vascular prosthetic devices, implants and grafts, initial encounter (principal); Y84.8 Other medical procedures as the cause of abnormal reaction of the patient, or of later complication, without mention of misadventure at the time of the procedure; N18.6 End stage renal disease; Z98.890 Other specified postprocedural states; I25.10 Atherosclerotic heart disease of native coronary artery without angina pectoris; I12.0 Hypertensive chronic kidney disease with stage 5 chronic kidney disease or end stage renal disease; Z79.01 Long term (current) use of anticoagulants; Z79.899 Other long term (current) drug therapy; Z82.49 Family history of ischemic heart disease and other diseases of the circulatory system; Z83.3 Family history of diabetes mellitus; Z80.9 Family history of malignant neoplasm, unspecified

== ENCOUNTER 2017-10-06 10:55 | Day surgery (SDC) | payer MEDICARE ==
[2017-09-30 13:57] VITALS: Ht 180.3 cm; Wt 77.3 kg
[~2017-10-06] VITALS: Ht 180.3 cm; Wt 77.3 kg
--- NOTE | 2017-10-06 06:03 | History and Physical ---
History & Physical Date of Service October 06, 2017. History & Physical CC: End stage renal disease, pseudoaneurysm left arm fistula HPI: Mr. Hendrix is a 71-year-old gentleman who underwent an aortic root replacement. He developed acute renal failure postoperatively, requiring dialysis, and now has left arm fistula in place. There are problems with running the fistula. He had a revision of his fistula and it was then running normally. It now has poor flows at dialysis. A fistulogram with REGIONAL LOSS PREVENTION MANAGER was done. He was also found to have three pseudoaneurysms of the fistula. His is admitted today for repair of one of these aneurysms in a staged fashion. HIS ALLERGIES ARE PENICILLIN. Medications include amiodarone, Bumex, citalopram, Keppra, MiraLAX, Pepcid, Procrit, Renal Caps, and Coumadin. Past medical history is positive for coronary artery occlusive disease, aortic dissection, and renal failure. He also has a history of high blood pressure. Family history is positive for heart disease, hypertension, diabetes, cancer, circulation problems, carotid artery disease. SOCIAL HISTORY: He does not smoke. He does not drink. REVIEW OF SYSTEMS: Ten systems were reviewed. The only positive findings were irregular heartbeat, loss of appetite, and prostate problems. PHYSICAL EXAM: The patient is awake, alert, oriented x3. He is right handed. Blood pressure is 150/76 in the right, 154/70 in the left. Head and Neck: Within normal limits. No carotid bruits. Lungs are clear. Cardiac exam shows a regular heartbeat. Abdomen was soft. Vascular exam had carotids, superficial temporal and radials +2 bilaterally. Femorals are +2 bilaterally. Neurologic exam shows weakness of the right upper extremity and left lower extremity. Good thrill in left arm fistula IMPRESSION: End-stage renal disease. Pseudoaneurysm of left arm av fsitula PLAN AND RECOMMENDATIONS: Patient is admitted for a revision of his av fistula. I have discussed the risks options and benefits of the procedure with the patient. The patient understands the risks options and benefits and agrees to the procedure.
[~2017-10-06 10:55] MED LIST changes: +ATROPINE SULFATE 0.1 MG/ML 5ML SYR IV PRN; -CMD3 PO; -D5W AND 1/4NSS 1000 ML IV SCH; -DEXTROSE 5% IV SCH; +DOCU-94 PO; +EpHEDrine SULFATE INJ 50 MG/ML AMP IV PRN; +FENTANYL CITRATE INJ 50 MCG/1 ML 2 ML VIAL IV PRN; +METO25TA56 PO; -MULT-506 PO; +ONDANSETRON INJ 2 MG/ML 2 ML VIAL IV PRN; +POLY335019 PO; -RANITIDINE IV SCH; -SENNTAB23 PO; +SODIUM CHLORIDE 0.9% 1000ML 1,000 ML IV SCH; +WARF2TAB8 PO; +[UNRECOGNIZED DRUG - OTHER] PO
[2017-10-06 11:21] VITALS: BP 110/59; PULSE 71; TEMP 36.5; O2SAT 98
[2017-10-06 12:29] LABS: CALCIUM 9.3 mg/dl (8.5-10.1); CREATININE 5.05 mg/dl (0.60-1.40); POTASSIUM 3.7 mmol/L (3.5-5.1)
[2017-10-06] MEDS ORDERED: MIDAZOLAM HCL 1 MG/ML 2ML VIAL ONE (13:16)
[2017-10-06] MEDS ORDERED: PROPOFOL IV EMULSION 10 MG/ML 20 ML VIAL ONE (13:16)
[2017-10-06] MEDS ORDERED: FENTANYL CITRATE INJ 50 MCG/1 ML 2 ML VIAL ONE (13:16)
[2017-10-06] MEDS ORDERED: LIDOCAINE HCL 2% 2 ML VIAL (20MG/ML) ONE (13:16)
[2017-10-06] MEDS ORDERED: BUPIVACAINE/EPINEPHRINE 0.5% MPF 1:200,000 30 ML VIAL ONE (13:51)
[2017-10-06] MEDS ORDERED: GELATIN SPONGE 12-7MM ONE (13:51)
[2017-10-06] MEDS ORDERED: LIDOCAINE HCL 1% 20 ML VIAL ONE (13:51)
[2017-10-06] MEDS ORDERED: HEPARIN SOD (PORCINE) 1000 UNIT/ML 10 ML VIAL ONE ×2 (13:51→14:53)
[2017-10-06] MEDS ORDERED: THROMBIN FOR SOLN 20000 UNIT KIT ONE (13:51)
[2017-10-06] MEDS ORDERED: ONDANSETRON INJ 2 MG/ML 2 ML VIAL ONE (14:19)
--- NOTE | 2017-10-06 15:14 | [facility] Post Operative Brief Note ---
Immediate Operative Summary Operative Date October 06, 2017. Pre-Operative Diagnosis End-stage renal disease; pseudoaneurysm of left arm av fsitula Post-Operative Diagnosis End-stage renal disease; pseudoaneurysm of left arm av fsitula Procedure(s) Performed Left Upper Extremity Fistula Revision Surgeon Dr. Valerio Ferry Engineer Surgeon(s) Nancy Sellers PA-C; Laurel Phelps MD Fellow Estimated Blood Loss 10CC Findings Consistent with Post-Op Diagnosis Specimens None Drains None Anesthesia Type MAC Complication(s) none Disposition Accompanied Pt To Recover: no Disposition: Recovery Room / PACU
[2017-10-06] MEDS ORDERED: OXYC-57 PO (15:17)
--- NOTE | 2017-10-06 15:19 | Discharge Instructions ---
Discharge Instructions Date of Service October 06, 2017. Visit Reason for Visit: End Stage Renal Disease On Hemodialysis Discharge Discharge Diagnosis / Problem: Pseudoaneurysm left upper arm fistula Discharge Goals Goal(s): Therapeutic intervention Activity Recommendations Activity Limitations: per Instructions/Follow-up section Anesthesia . Post Anesthesia Instructions: If you have had General Anesthesia or IV Sedation: * Do not drive today. * Resume driving when surgeon permits. * Do not make important decisions or sign legal documents today. * Call surgeon for: 1. Temperature elevations greater than 101 degrees F. 2. Uncontrollable pain. 3. Excessive bleeding. 4. Persistent nausea and vomiting. 5. Medication intolerance (nausea, vomiting or rash). * For nausea and vomiting use only clear liquids such as: tea, soda, bouillon until nausea subsides, then gradually increase diet as tolerated. * If you have any concerns or questions, call your surgeon's office. If physician is unavailable and it is an emergency, call 911 or go to the nearest emergency room. . Instructions / Follow-Up Instructions / Follow-Up Call [phone] to schedule a follow up appointment if one not already scheduled. ACTIVITY RECOMMENDATIONS: See Above SPECIAL CARE INSTRUCTIONS: Call your doctor if: * Temperature above 101 degrees * Pain not relieved by pain medicine ordered * There is increased drainage or redness from any incision * You have any unanswered questions or concerns. Diet Recommendations Recommended Home Diet: resume previous diet Procedures Procedures Performed: Left Upper Extremity Fistula Revision Pending Studies Studies pending at discharge: no Medical Emergencies . Who to Call and When: Medical Emergencies: If at any time you feel your situation is an emergency, please call 911 immediately. . Non-Emergent Contact Non-Emergency issues call your: Surgeon . . "Provider Documentation" section prepared by Melchor Valerio. .
--- NOTE | 2017-10-06 15:43 | Anesthesiology Progress Note ---
Anesthesia Post Op Note Date & Time October 06, 2017 at 15:43 Vital Signs Pain Intensity: 0 Vital Signs Past 12 Hours Date Time Temp Pulse Resp B/P (MAP) Pulse Ox O2 Delivery O2 Flow Rate FiO2 10/06/17 15:32 36.4 52 16 127/62 100 Room Air 10/06/17 11:21 36.5 71 18 110/59 (76) 98 Room Air Notes Mental Status: alert / awake / arousable, participated in evaluation Pt Amnestic to Procedure: Yes Nausea / Vomiting: adequately controlled Pain: adequately controlled Airway Patency, RR, SpO2: stable & adequate BP & HR: stable & adequate Hydration State: stable & adequate Anesthetic Complications: no major complications apparent
[2017-10-06 15:56] VITALS: BP 122/59; PULSE 45; TEMP 36.5; O2SAT 100
[2017-10-06 16:38] VITALS: BP 122/57; PULSE 59; O2SAT 100
[2017-10-06 17:00] VITALS: BP 133/58; PULSE 52; TEMP 36.5; O2SAT 100
--- NOTE | 2017-10-06 21:04 | OPERATIVE REPORT ---
DATE OF OPERATION: 10/06/2017 PREOPERATIVE DIAGNOSIS: End-stage renal disease with pseudoaneurysm of left upper arm arteriovenous fistula. POSTOPERATIVE DIAGNOSIS: End-stage renal disease with pseudoaneurysm of left upper arm arteriovenous fistula. PROCEDURE: Left upper extremity fistula revision. SURGEON: Dr. Melchor Valerio. SUGAR REPROCESS OPERATOR HEAD: Dr. Laurel Phelps and PASQUALE Bajwa. ESTIMATED BLOOD LOSS: 10 mL. SPECIMENS: None. ANESTHESIA: Monitored anesthesia care plus local. COMPLICATIONS: None. INDICATIONS: Mr. Charlie Hendrix is a 71-year-old gentleman with history of aortic root replacement, coronary artery disease, aortic dissection, hypertension, renal failure who is currently undergoing dialysis through a left upper arm AV fistula. He previously underwent revision of his fistula. He now has poor flows at dialysis and a fistulogram showed 3 pseudoaneurysms within the fistula. He was recommended to undergo a staged repair. Risks, benefits, and alternatives to pseudoaneurysm repair were discussed with the patient and he consented to the procedure. DESCRIPTION OF PROCEDURE: The patient was taken to the operating room and placed in the supine position. His left arm was prepped and draped in the usual sterile fashion. A safety timeout was performed and the patient, procedure, and sidedness were correctly identified. Sedation was administered by our anesthesia colleagues. Local anesthesia was used to anesthetize the skin overlying the upper most pseudoaneurysm at the level of the mid humerus. A 6 cm skin incision was made. Electrocautery was used to divide subcutaneous tissues and the pseudoaneurysm was identified. It was just dissected circumferentially. The patient was systemically anticoagulated with 3000 units of intravenous heparin. The fistula was clamped proximal and distal to the pseudoaneurysm. An 11 blade scalpel was used to make a longitudinal arteriotomy through the pseudoaneurysm. The true lumen was identified. The pseudoaneurysm capsule was debrided back. The 2 opposing vein anna were then reapproximated with 6-0 Prolene in a running fashion. Clamps were released and there were 2 small areas of bleeding at our suture line. Two additional 6-0 sutures were placed with good hemostasis. Small areas of bleeding within the wound bed were controlled with Bovie electrocautery. A 3-0 Vicryl stitch was placed in the wound bed over an area of bleeding which successfully controlled the bleeding. The subcutaneous tissues were reapproximated with 3-0 Vicryl in a running fashion. Skin was reapproximated with skin yoandy. A sterile dressing was applied. There was a palpable thrill in the fistula at the close of the case. He was awakened from anesthesia and transferred to the recovery area in stable condition. He tolerated the procedure well and there were no immediate complications. Dr. Melchor Valeroi was present for the entire procedure. I attest to the content of the Intraoperative Record and any orders documented therein. Any exception s are noted below.
== END 2017-10-06 17:00 | disposition home or self-care (01) ==
LOC: C.ACU 10:55
PROVIDERS: ATTEND Surgery Vascular Surgery
DX: T82.898A Other specified complication of vascular prosthetic devices, implants and grafts, initial encounter (principal); Y84.8 Other medical procedures as the cause of abnormal reaction of the patient, or of later complication, without mention of misadventure at the time of the procedure; N18.6 End stage renal disease; I25.10 Atherosclerotic heart disease of native coronary artery without angina pectoris; Z99.2 Dependence on renal dialysis; Z98.890 Other specified postprocedural states; I12.0 Hypertensive chronic kidney disease with stage 5 chronic kidney disease or end stage renal disease; Z79.01 Long term (current) use of anticoagulants; Z79.899 Other long term (current) drug therapy; M19.90 Unspecified osteoarthritis, unspecified site; Z88.0 Allergy status to penicillin; Z88.8 Allergy status to other drugs, medicaments and biological substances